=== PATIENT | male | born 1995 | race African-American/Black ===

== ENCOUNTER 2020-03-21 22:26 | Emergency (ER) | payer SELFPAY ==
[2020-03-21] MEDS ORDERED: Lidocaine Viscous Sol 2% 15 ml UD Cup ONE (22:53)
[2020-03-21] MEDS ORDERED: Bupivacaine 0.5% 10 ML VIAL ONE (22:53)
== END 2020-03-21 23:48 | disposition home or self-care (01) ==
LOC: NAV ERS 22:26
DX: S01.511A Laceration without foreign body of lip, initial encounter (principal); F17.210 Nicotine dependence, cigarettes, uncomplicated; W01.0XXA Fall on same level from slipping, tripping and stumbling without subsequent striking against object, initial encounter
CPT/HCPCS: 40650; J3490

== ENCOUNTER 2020-03-29 17:38 | Emergency (ER) | payer SELFPAY ==
[2020-03-29] MEDS ORDERED: Ondansetron ODT 4 MG TAB ONE (18:06)
[2020-03-29 18:37] LABS: Bilirubin Moderate (Negative); Blood, Urine Trace (Negative); Glucose, Urine (Dipstick) Negative (Negative); Ketone, Urine 15 mg/dL (Negative); Leukocyte Negative (Negative); Nitrite Negative (Negative); Protein, Urine (Dipstick) > or equal to 300 mg/dL (Neg-Trace); pH, Urine 5.5 (5.0-9.0)
[2020-03-29 18:46] LABS: Clarity SL HAZY (Clear); RBC/HPF 0-3 HPF (0-3); Specific Gravity, Urine 1.032 (1.002-1.036); Squamous Epithelial 0-3 HPF (0-3); WBC/HPF 0-3 HPF (0-3)
[2020-03-29 18:47] LABS: Bacteria/HPF 1+ HPF (None Seen); Mucous/LPF 3+ LPF (<2+)
[2020-03-29] MEDS ORDERED: Bacitracin 1 PK ONE (19:20)
== END 2020-03-29 19:15 | disposition home or self-care (01) ==
LOC: NAV ERS 17:38
DX: T81.31XA Disruption of external operation (surgical) wound, not elsewhere classified, initial encounter (principal); S01.511D Laceration without foreign body of lip, subsequent encounter; R11.2 Nausea with vomiting, unspecified; F17.210 Nicotine dependence, cigarettes, uncomplicated; W18.30XA Fall on same level, unspecified, initial encounter
CPT/HCPCS: 81003; 81015; 99284; Q0162